=== PATIENT | male | born 1995 | race Hispanic/Latino ===

== ENCOUNTER → 2022-04-06 | Outpatient (REF) | LOC: M PLAIMG 09:51 | PROVIDERS: ATTEND Internal Medicine | DX: R06.02 Shortness of breath (principal) ==

== ENCOUNTER → 2022-04-08 | Outpatient (CLI) | payer OTHER | LOC: M CARPUL 09:11 → EDUNIT# 09:30 | PROVIDERS: ATTEND Internal Medicine | DX: R07.9 Chest pain, unspecified (principal) ==